=== PATIENT | male | born 1975 | race African-American/Black ===

== ENCOUNTER → 2016-06-06 | Outpatient (CLI) | payer BC ==
--- NOTE | 2016-06-07 16:13 | CR ---
EXAM DATE: 06/06/16 PATIENT'S AGE: 40 Patient: LICO STEVEN Facility: [place], [place] Site Site : 1975 Study: XRay Extremity Right HAND [id number] 3:19:34 PM Ordering Physician: JEAN PIERRE Final Report: HISTORY: Hand injury playing basketball. Findings/Impression: Two views of the left hand demonstrates normal bone mineralization. 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 There is degenerative changes are the radial ulnar joint space. No acute fracture is seen. Dictated by Ronda Melvin MD @ Jun 07 2016 1:54AM (Electronic Signature) Report Signed by Proxy. JAMES
== END ==
LOC: MW.CHFP 14:57
PROVIDERS: ATTEND Nurse Practitioner Family
DX: S69.91XA Unspecified injury of right wrist, hand and finger(s), initial encounter (principal); Q79.8 Other congenital malformations of musculoskeletal system
CPT/HCPCS: 73120-26-RT; 73120-RT

== ENCOUNTER → 2016-06-17 | Outpatient (CLI) | payer BC ==
--- NOTE | 2016-06-18 12:23 | MR ---
EXAM DATE: 06/17/16 PATIENT'S AGE: 41 Patient: LICO STEVEN Facility: [place], [place] : 1975 Study: MRI Extremity Right [id number] 5:32:10 PM Ordering Physician: Clemente Dozier Final Report: HISTORY: Right hand injury. Pain. Technique: Axial T1, axial PD fat-sat, coronal STIR, sagittal PD and sagittal PD fat-sat. The patient was not able to complete the entire examination secondary to pain. Comparison: Radiographs 06/06/2016. Findings: There is diffuse signal abnormality and indistinctness involving the fibers of the proper radial collateral ligament of the 3rd metacarpophalangeal joint as seen on the coronal STIR images compatible with tearing of that ligament. The accessory radial collateral ligament of that joint space appears at least partially intact. The ulnar collateral ligaments of the 3rd metacarpophalangeal joint are maintained. Marrow edema is noted involving the 3rd metacarpal head and base of the 3rd digit proximal phalanx likely reflecting reactive edema. There is a small to moderate 3rd metacarpophalangeal joint effusion. The volar plate of that articulation appears maintained. No discrete focal articular cartilage defect. The flexor digitorum profundus and superficialis tendons of the 3rd digit are maintained. The extensor tendon/apparatus of the 3rd digit is maintained. No acute fracture. Impression: 1. Examination mildly limited by patient inability to complete the entire examination secondary to pain. 2. Acute or subacute tearing of the proper radial collateral ligament of the 3rd metacarpophalangeal joint of the right hand. The accessory radial collateral ligament appears least partially intact. 3. Areas of periarticular marrow edema about the 3rd MCP joint are likely reactive from the adjacent ligament pathology. No fracture or definite focal cartilage defect. 4. A small to moderate 3rd metacarpophalangeal joint effusion is present. Dictated by Maxi Beebe MD @ Jun 18 2016 8:38AM (Electronic Signature) Report Signed by Proxy. JAMES
== END ==
LOC: MW.MRI 16:11
PROVIDERS: ATTEND Nurse Practitioner Family
DX: S69.91XA Unspecified injury of right wrist, hand and finger(s), initial encounter (principal); S63.652A Sprain of metacarpophalangeal joint of right middle finger, initial encounter; X58.XXXA Exposure to other specified factors, initial encounter
CPT/HCPCS: 73218-26-RT; 73218-RT

== ENCOUNTER 2016-10-16 00:13 | Emergency (ER) | payer BC ==
--- NOTE | 2016-10-16 00:55 | EDM.PDOC ---
ED HPI GENERAL MEDICAL PROBLEM - General Chief Complaint: General Stated Complaint: MALE PROBLEMS Time Seen by Provider: 10/16/16 00:52 - History of Present Illness INITIAL COMMENTS - FREE TEXT/NARRATIVE: HISTORY AND PHYSICAL: History of present illness: Patient's 41-year-old black male presents with a concern of STD screening he denies any penile lesions equivocates regarding discomfort with urination has had no discharge and denies history of prior episode Review of systems: As per history of present illness and below otherwise all systems reviewed and negative. Past medical history: As per history of present illness and as reviewed below otherwise noncontributory. Surgical history: As per history of present illness and as reviewed below otherwise noncontributory. Social history: No reported history of drug or alcohol abuse. Family history: As per history of present illness and as reviewed below otherwise noncontributory. Physical exam: HEENT: Atraumatic, normocephalic, pupils reactive, negative for conjunctival pallor or scleral icterus, mucous membranes moist, throat clear, neck supple, nontender, trachea midline. Lungs: Clear to auscultation, breath sounds equal bilaterally, chest nontender. Heart: S1S2, regular, negative for clicks, rubs, or JVD. Abdomen: Soft, nondistended, nontender. Negative for masses or hepatosplenomegaly. Negative for costovertebral tenderness. Pelvis: Stable nontender. Genitourinary: Deferred. Rectal: Deferred. Extremities: Atraumatic, negative for cords or calf pain. Neurovascular unremarkable. Neuro: Awake, alert, oriented. Cranial nerves II through XII unremarkable. Cerebellum unremarkable. Motor and sensory unremarkable throughout. Exam nonfocal. Diagnostics: UA GC and Chlamydia per urine Therapeutics: None Impression: #1 medical screening exam Definitive disposition and diagnosis as appropriate pending reevaluation and review of above. - Related Data Allergies Allergy/AdvReac Type Severity Reaction Status Date / Time No Known Allergies Allergy Verified 10/16/16 00:17 Home Meds: Home Meds . [No Known Home Meds] 06/17/15 [History] Past Medical History - Past Health History Medical/Surgical History: Denies Medical/Surgical History HEENT History: Reports: None Cardiovascular History: Reports: None Respiratory History: Reports: None Gastrointestinal History: Reports: None Genitourinary History: Reports: None Musculoskeletal History: Reports: None Neurological History: Reports: None Psychiatric History: Reports: None Endocrine/Metabolic History: Reports: None Hematologic History: Reports: None Dermatologic History: Reports: None - Infectious Disease History Infectious Disease History: Reports: None Social & Family History - Family History Family Medical History: Noncontributory - Tobacco Use Smoking Status *Q: Never Smoker Second Hand Smoke Exposure: No - Recreational Drug Use Recreational Drug Use: No ED ROS GENERAL - Review of Systems Review Of Systems: ROS reveals no pertinent complaints other than HPI. ED EXAM, GENERAL - Physical Exam Exam: See Below (See dictation) Course - Vital Signs Last Recorded V/S: Last Vital Signs Temp 36.1 C 10/16/16 00:17 Pulse 84 10/16/16 00:17 Resp 18 10/16/16 00:17 BP 148/86 H 10/16/16 00:17 Pulse Ox 97 10/16/16 00:17 - Orders/Labs/Meds Orders: Active Orders 24 hr Category Date Time Status CHLAMYDIA TRACHOMATIS/GC AMPLF Stat Lab 10/16/16 00:30 Received UA W/MICROSCOPIC [URIN] Stat Lab 10/16/16 00:30 Received Departure - Departure Time of Disposition: 00:54 Disposition: Home, Self-Care 01 Condition: Good Clinical Impression: Encounter for medical screening examination - Discharge Information Referrals: PCP,None [Primary Care Provider] - Additional Instructions: The following information is given to patients seen in the emergency department who are being discharged to home. This information is to outline your options for follow-up care. We provide all patients seen in our emergency department with a follow-up referral. The need for follow-up, as well as the timing and circumstances, are variable depending upon the specifics of your emergency department visit. If you don't have a primary care physician on staff, we will provide you with a referral. We always advise you to contact your personal physician following an emergency department visit to inform them of the circumstance of the visit and for follow-up with them and/or the need for any referrals to a consulting specialist. The emergency department will also refer you to a specialist when appropriate. This referral assures that you have the opportunity for followup care with a specialist. All of these measure are taken in an effort to provide you with optimal care, which includes your followup. Under all circumstances we always encourage you to contact your private physician who remains a resource for coordinating your care. When calling for followup care, please make the office aware that this follow-up is from your recent emergency room visit. If for any reason you are refused follow-up, please contact the [facility] emergency department at and asked to speak to the emergency department charge nurse. [facility] [address] [place] [id number] Follow-up primary medical doctor urology clinic as needed as discussed above call for appointment return as needed as discussed - My Orders Last 24 Hours: My Active Orders 10/16/16 00:30 CHLAMYDIA TRACHOMATIS/GC AMPLF Stat UA W/MICROSCOPIC [URIN] Stat - Assessment/Plan Last 24 Hours: My Active Orders 10/16/16 00:30 CHLAMYDIA TRACHOMATIS/GC AMPLF Stat UA W/MICROSCOPIC [URIN] Stat
[2016-10-16 01:17] VITALS: BP 134/81
== END 2016-10-16 01:17 | disposition home or self-care (01) ==
LOC: MW.ED 00:13
DX: Z11.3 Encounter for screening for infections with a predominantly sexual mode of transmission (principal)
CPT/HCPCS: 81001; 87491; 87591; 99282; 99283

== ENCOUNTER 2018-06-18 12:14 | Emergency (ER) | payer BC ==
--- NOTE | 2018-06-18 12:19 | EDM.PDOC ---
ED HPI GENERAL MEDICAL PROBLEM - General Chief Complaint: Lower Extremity Injury/Pain Stated Complaint: HURT LT FOOT Time Seen by Provider: 06/18/18 12:18 Source of Information: Reports: Patient History Limitations: Reports: No Limitations - History of Present Illness INITIAL COMMENTS - FREE TEXT/NARRATIVE: History of present illness: [] Review of systems: As per history of present illness and below otherwise all systems reviewed and negative. Past medical history: As per history of present illness and as reviewed below otherwise noncontributory. Surgical history: As per history of present illness and as reviewed below otherwise noncontributory. Social history: No reported history of drug or alcohol abuse. Family history: As per history of present illness and as reviewed below otherwise noncontributory. Physical exam: General: Well developed, well nourished in NAD HEENT: Atraumatic, normocephalic, pupils reactive, negative for conjunctival pallor or scleral icterus, mucous membranes moist, throat clear, neck supple, nontender, trachea midline. Lungs: Clear to auscultation, breath sounds equal bilaterally, chest nontender. Heart: S1S2, regular, negative for clicks, rubs, or JVD. Abdomen: NABS, Soft, nondistended, nontender. Negative for masses or hepatosplenomegaly. Negative for costovertebral tenderness. Pelvis: Stable nontender. Genitourinary: Deferred. Rectal: Deferred. Extremities: Atraumatic, negative for cords or calf pain. Neurovascular unremarkable. Neuro: Awake, alert, oriented. Cranial nerves II through XII unremarkable. Cerebellum unremarkable. Motor and sensory unremarkable throughout. Exam nonfocal. Skin:warm and dry Diagnostics: X-ray ankle and foot on the left Therapeutics: Toradol, ankle stirrup ED Course: Unremarkable Impression: Left foot/ankle sprain Prescriptions: None Plan: Ibuprofen, Tylenol, ice and elevation, follow up with primary care as needed Definitive disposition and diagnosis as appropriate pending reevaluation and review of above. Left Ankle Pain Score (Numeric/FACES): 7 - Related Data Allergies Allergy/AdvReac Type Severity Reaction Status Date / Time No Known Allergies Allergy Verified 06/18/18 12:30 Home Meds: Home Meds . [No Known Home Meds] 06/17/15 [History] Past Medical History - Past Health History Medical/Surgical History: Denies Medical/Surgical History HEENT History: Reports: None Cardiovascular History: Reports: None Respiratory History: Reports: None Gastrointestinal History: Reports: None Genitourinary History: Reports: None Musculoskeletal History: Reports: None Neurological History: Reports: None Psychiatric History: Reports: None Endocrine/Metabolic History: Reports: None Hematologic History: Reports: None Dermatologic History: Reports: None - Infectious Disease History Infectious Disease History: Reports: None Social & Family History - Family History Family Medical History: Noncontributory Review of Systems - Review of Systems Review Of Systems: ROS reveals no pertinent complaints other than HPI. ED EXAM, GENERAL - Physical Exam Exam: See Below (See history of present illness) Course - Vital Signs Last Recorded V/S: Last Vital Signs Temp 97.4 F 06/18/18 12:27 Pulse 77 06/18/18 12:27 Resp 18 06/18/18 12:27 BP 116/70 06/18/18 12:27 Pulse Ox 95 06/18/18 12:27 - Orders/Labs/Meds Meds: Medications Discontinued Medications Generic Name Dose Route Start Last Admin Trade Name Kelley PRN Reason Stop Dose Admin Ketorolac Tromethamine 60 mg 06/18/18 12:39 06/18/18 12:54 Toradol IM 06/18/18 12:40 60 mg ONETIME ONE Administration Departure - Departure Time of Disposition: 13:23 Disposition: Home, Self-Care 01 Condition: Good Clinical Impression: Strain of left ankle and foot Qualifiers: Encounter type: initial encounter Qualified Code(s): S96.912A - Strain of unspecified muscle and tendon at ankle and foot level, left foot, initial encounter - Discharge Information *PRESCRIPTION DRUG MONITORING PROGRAM REVIEWED*: No *COPY OF PRESCRIPTION DRUG MONITORING REPORT IN PATIENT REINA: No Referrals: PCP,None [Primary Care Provider] - Forms: ED Department Discharge Additional Instructions: The following information is given to patients seen in the emergency department who are being discharged to home. This information is to outline your options for follow-up care. We provide all patients seen in our emergency department with a follow-up referral. The need for follow-up, as well as the timing and circumstances, are variable depending upon the specifics of your emergency department visit. If you don't have a primary care physician on staff, we will provide you with a referral. We always advise you to contact your personal physician following an emergency department visit to inform them of the circumstance of the visit and for follow-up with them and/or the need for any referrals to a consulting specialist. The emergency department will also refer you to a specialist when appropriate. This referral assures that you have the opportunity for follow-up care with a specialist. All of these measure are taken in an effort to provide you with optimal care, which includes your follow-up. Under all circumstances we always encourage you to contact your private physician who remains a resource for coordinating your care. When calling for follow-up care, please make the office aware that this follow-up is from your recent emergency room visit. If for any reason you are refused follow-up, please contact the [facility] Emergency Department at and asked to speak to the emergency department charge nurse. [facility] Primary Care [address] [place] [id number]
[2018-06-18] MEDS ORDERED: Ketorolac 60 MG/2 ML SDV IM ONE (12:39)
--- NOTE | 2018-06-18 13:19 | CR ---
EXAMINATION: Left foot and left ankle HISTORY: Pain COMPARISON: None TECHNIQUE: 3 views of the left ankle and 2 views of the left foot FINDINGS: There is no acute osseous abnormality, dislocation, or fracture. Bone mineralization and joint spaces appear preserved. Mild generalized soft tissue swelling. Ankle mortise and talar dome appear intact. Tiny plantar calcaneal spur. IMPRESSION: No acute osseous abnormality identified.
[2018-06-18 13:43] VITALS: BP 120/53
== END 2018-06-18 13:35 | disposition home or self-care (01) ==
LOC: MW.ED 12:14
DX: S93.402A Sprain of unspecified ligament of left ankle, initial encounter (principal); S96.912A Strain of unspecified muscle and tendon at ankle and foot level, left foot, initial encounter; X50.9XXA Other and unspecified overexertion or strenuous movements or postures, initial encounter; Y93.66 Activity, soccer
CPT/HCPCS: 73610; 73620; 96372; 99283; J1885

== ENCOUNTER 2019-12-27 06:36 | Day surgery (SDC) | payer BC ==
[~2019-12-27 06:36] MED LIST: Lactated Ringers 1,000 ML IV SCH; ceFAZolin 2 GM in Premix Bag 1 BAG IV ONE
[2019-12-27] MEDS ORDERED: Midazolam 1 MG/ML 2 ML SDV ONE (07:10)
[2019-12-27] MEDS ORDERED: fentaNYL 100 MCG/2 ML SDV ONE (07:10)
[2019-12-27] MEDS ORDERED: Propofol 200 MG/20 ML SDV ONE ×2 (07:10→10:38)
[2019-12-27] MEDS ORDERED: Succinylcholine/Sod PF 100 MG/5 ML SYRINGE IV ONE (07:11)
[2019-12-27] MEDS ORDERED: Rocuronium Bromide 50 MG/5 ML Syringe ONE (07:11)
[2019-12-27] MEDS ORDERED: ceFAZolin 1 GM Vial ONE (07:19)
[2019-12-27] MEDS ORDERED: Bupivacaine 0.5% 10 ML SDV ONE (07:19)
--- NOTE | 2019-12-27 07:26 | PCM.PREANE ---
Preanesthetic Assessment - Anesthesia/Transfusion/Family Hx Anesthesia History: Prior Anesthesia Without Reaction Family History of Anesthesia Reaction: No Transfusion History: No Prior Transfusion(s) Intubation History: Unknown - Review of Systems General: No Symptoms Pulmonary: No Symptoms Cardiovascular: No Symptoms Gastrointestinal: No Symptoms Neurological: No Symptoms Other: Reports: None - Physical Assessment Vital Signs: Last Vital Signs Temp 36.9 C 12/27/19 07:18 Pulse 67 12/27/19 07:18 Resp 18 12/27/19 07:18 BP 130/77 12/27/19 07:18 Pulse Ox 97 12/27/19 07:18 Height: 6 ft 7 in Weight: 122.47 kg ASA Class: 2 Mental Status: Alert & Oriented x3 Airway Class: Mallampati = 2 Dentition: Reports: Normal Dentition, [place](s) (gold crowns x2 upper front) Thyro-Mental Finger Breadths: 3 Mouth Opening Finger Breadths: 3 ROM/Head Extension: Full Lungs: Clear to Auscultation, Normal Respiratory Effort Cardiovascular: Regular Rate, Regular Rhythm - Allergies Allergies/Adverse Reactions: Allergies Allergy/AdvReac Type Severity Reaction Status Date / Time No Known Allergies Allergy Verified 12/21/19 12:52 - Blood Blood Available: No - Anesthesia Plan Pre-Op Medication Ordered: None - Acknowledgements Anesthesia Type Planned: General Anesthesia Pt an Appropriate Candidate for the Planned Anesthesia: Yes Alternatives and Risks of Anesthesia Discussed w Pt/Guardian: Yes Pt/Guardian Understands and Agrees with Anesthesia Plan: Yes PreAnesthesia Questionnaire - Past Health History Medical/Surgical History: Denies Medical/Surgical History HEENT History: Reports: Other (See Below) Other HEENT History: wears glasses Cardiovascular History: Reports: None Respiratory History: Reports: None Gastrointestinal History: Reports: None Genitourinary History: Reports: None Musculoskeletal History: Reports: None Neurological History: Reports: None Psychiatric History: Reports: None Endocrine/Metabolic History: Reports: Obesity/BMI 30+ Hematologic History: Reports: None Immunologic History: Reports: None Oncologic (Cancer) History: Reports: None Dermatologic History: Reports: None - Infectious Disease History Infectious Disease History: Reports: None - Past Surgical History Head Surgeries/Procedures: Reports: None HEENT Surgical History: Reports: None Cardiovascular Surgical History: Reports: None Respiratory Surgical History: Reports: None GI Surgical History: Reports: None Male Surgical History: Reports: None Endocrine Surgical History: Reports: None Neurological Surgical History: Reports: None Musculoskeletal Surgical History: Reports: Arthroscopic Knee Other Musculoskeletal Surgeries/Procedures:: left knee ACL and MCL repairs Oncologic Surgical History: Reports: None Dermatological Surgical History: Reports: None - SUBSTANCE USE Tobacco Use Status *Q: Former Tobacco User Tobacco Use Within Last Twelve Months: No Recreational Drug Use History: No - HOME MEDS Home Medications: Home Meds . [No Known Home Meds] 06/17/15 [History] - CURRENT (IN HOUSE) MEDS Current Meds: Current Medications Lactated Ringer's (Ringers, Lactated) 1,000 mls @ 125 mls/hr IV ASDIRECTED TRISTA Discontinued Medications Bupivacaine HCl (Sensorcaine-Mpf 0.5%) Confirm Administered Dose 20 ml .ROUTE .STK-MED ONE Stop: 12/27/19 07:20 Cefazolin Sodium (Ancef) Confirm Administered Dose 1 gm .ROUTE .STK-MED ONE Stop: 12/27/19 07:20 Fentanyl (Sublimaze) Confirm Administered Dose 100 mcg .ROUTE .STK-MED ONE Stop: 12/27/19 07:11 Cefazolin Sodium/Dextrose 2 gm (/ Premix) 50 mls @ 100 mls/hr IV ONETIME ONE Stop: 12/27/19 06:59 Lidocaine HCl (Xylocaine-Mpf 1%) Confirm Administered Dose 5 ml .ROUTE .STK-MED ONE Stop: 12/27/19 07:12 Midazolam HCl (Versed 1 Mg/Ml) Confirm Administered Dose 2 mg .ROUTE .STK-MED ONE Stop: 12/27/19 07:11 Propofol (Diprivan 20 Ml) Confirm Administered Dose 200 mg .ROUTE .STK-MED ONE Stop: 12/27/19 07:11 Rocuronium [place] (Rocuronium [place]) Confirm Administered Dose 50 mg .ROUTE .STK-MED ONE Stop: 12/27/19 07:12
[2019-12-27] MEDS ORDERED: ceFAZolin/Dextrose,Iso-Osmotic 2 GM/50 ML Duplex Bag IV ONE (07:57)
[2019-12-27] MEDS ORDERED: Dexamethasone 4 MG/ML 5 ML MDV ONE (08:10)
[2019-12-27] MEDS ORDERED: Ondansetron 4 MG/2 ML SDV ONE (08:10)
[2019-12-27] MEDS ORDERED: Ketorolac 30 MG/ML SDV ONE (08:10)
[2019-12-27] MEDS ORDERED: Albuterol 0.083% 2.5 MG/3 ML Neb Soln NEB PRN (08:42)
[2019-12-27] MEDS ORDERED: 50% Dextrose in Water 50 ML Syringe IVPUSH PRN (08:42)
[2019-12-27] MEDS ORDERED: fentaNYL 100 MCG/2 ML SDV IVPUSH PRN (08:42)
[2019-12-27] MEDS ORDERED: EPINEPHrine 1:10,000 1 MG/10 ML Syringe IVPUSH PRN (08:42)
[2019-12-27] MEDS ORDERED: Naloxone 0.4 MG/ML Syringe IVPUSH PRN (08:42)
[2019-12-27] MEDS ORDERED: Atropine 0.1 MG/ML 10 ML Syringe IVPUSH PRN ×2 (08:42)
[2019-12-27] MEDS ORDERED: HYDROmorphone 2 MG/ML Syringe IVPUSH PRN (08:42)
[2019-12-27] MEDS ORDERED: Ondansetron 4 MG/2 ML SDV IVPUSH PRN ×2 (08:42→09:42)
[2019-12-27] MEDS ORDERED: ePHEDrine 50 MG/ML SDV ONE (08:49)
[2019-12-27] MEDS ORDERED: Acetaminophen/HYDROcodone 325-5 MG Tab PO PRN (09:42)
[2019-12-27] MEDS ORDERED: Morphine 10 MG/ML Syringe IVPUSH PRN (09:42)
[2019-12-27] MEDS ORDERED: Lactated Ringers 1,000 ML IV SCH (09:45)
--- NOTE | 2019-12-27 09:45 | PCM.OPNOTE ---
- General Post-Op/Procedure Note Date of Surgery/Procedure: 12/27/19 Operative Procedure(s): Repair incarcerated umbilical hernia with Dulex mesh Pre Op Diagnosis: Incarcerated umbilical hernia Post-Op Diagnosis: Same Anesthesia Technique: General ET Tube (ASA II) Primary Surgeon: Markos [facility] Occupational Therapist: Marguerite Melendez Fluid Replacement, Intraop: 1,000 EBL in mLs: 10 Condition: Good Free Text/Narrative:: DICTATION [id number] CPT CODE 91603/51787
--- NOTE | 2019-12-27 10:21 | PCM.POSTAN ---
POST ANESTHESIA ASSESSMENT - MENTAL STATUS Mental Status: Alert, Oriented - VITAL SIGNS Vital Signs: Last Vital Signs Temp 36.6 C 12/27/19 09:35 Pulse 53 L 12/27/19 10:05 Resp 13 12/27/19 10:05 BP 128/64 12/27/19 10:05 Pulse Ox 97 12/27/19 10:05 - RESPIRATORY Respiratory Status: Respiratory Rate WNL, Airway Patent, O2 Saturation Stable - CARDIOVASCULAR CV Status: Pulse Rate WNL, Blood Pressure Stable - GASTROINTESTINAL GI Status: No Symptoms - PAIN Pain Score: 3 - POST OP HYDRATION Hydration Status: Adequate & Stable - OBSERVATIONS Free Text/Narrative:: No anesthesia problems
[2019-12-27] MEDS ORDERED: Atropine 1 MG/ML SDV ONE (10:38)
[2019-12-27] MEDS ORDERED: Glycopyrrolate 0.2 MG/ML SDV ONE (10:38)
[2019-12-27] MEDS ORDERED: oxyCODONE 5 MG Tab ONE (11:06)
[2019-12-27] MEDS ORDERED: oxyCODONE 5 MG Tab PO ONE (11:12)
--- NOTE | 2019-12-27 11:44 | PCM48HPAN ---
Post Anesthesia Note - EVALUATION WITHIN 48HRS OF ANESTHETIC Vital Signs in Normal Range: Yes Patient Participated in Evaluation: Yes Respiratory Function Stable: Yes Airway Patent: Yes Cardiovascular Function Stable: Yes Hydration Status Stable: Yes Pain Control Satisfactory: Yes Nausea and Vomiting Control Satisfactory: Yes Mental Status Recovered: Yes Vital Signs: Last Vital Signs Temp 36.2 C 12/27/19 10:15 Pulse 53 L 12/27/19 10:15 Resp 16 12/27/19 10:15 BP 126/64 12/27/19 10:15 Pulse Ox 96 12/27/19 10:15 - COMMENTS/OBSERVATIONS Free Text/Narrative:: No anesthesia problems
--- NOTE | 2019-12-27 12:14 | OR ---
SURGEON: Markos Lovell M.D. DATE OF PROCEDURE: 12/27/2019 OPERATION PERFORMED: Repair of incarcerated umbilical hernia with Dulex mesh. PRIMARY SURGEON: Markos Lovell MD CUSTOMER SERVICE ENGINEER: Acquisitions Analyst: FLAVIA Stout student. ANESTHESIA: General endotracheal. ASA CLASSIFICATION: II. PREOPERATIVE DIAGNOSIS: Incarcerated umbilical hernia. POSTOPERATIVE DIAGNOSIS: Incarcerated umbilical hernia. ESTIMATED BLOOD LOSS: 10 mL. INTRAOPERATIVE FLUID REPLACEMENT: 1000 mL of crystalloid. DESCRIPTION OF PROCEDURE: The patient was taken to the operating room and placed on the operating table in the supine position. Time-out was called for appropriate identification of the patient and procedure. The surgical site had been marked prior to the patient entering the operating room. Sequential compression boots were placed on the patient. Following satisfactory attainment of general endotracheal anesthesia, the abdomen was prepped with DuraPrep solution and sterile drapes were applied. The skin around the umbilicus was infiltrated with 10 mL of 0.5% Marcaine solution. Infraumbilical skin incision was made and deepened through the subcutaneous tissue obtaining hemostasis with the use of electrocautery. The hernia sac was dissected free and the hernia was entered. The fascial edges were well defined and the defect was at least 3 cm in greatest dimension. Once that was accomplished, attempt was made to place Ventralex mesh. However, this would not lie flat in there and so a Dulex mesh was brought to the operating table. This was soaked in 1% Ancef solution and placed in an underlay technique and secured with multiple interrupted horizontal mattress 0 Ethibond sutures. Each suture was placed at least 1 cm away from the fascial edges. All sutures were placed under direct vision and held with hemostats until the final suture had been placed. Once all sutures were tied, the patient was given a Valsalva maneuver to 40 cm of water. The repair was solid. The wound was inspected for hemostasis and no other bleeding was noted. The fascia was then reapproximated over the mesh with interrupted 0 Ethibond sutures. The umbilicus was tacked down with a 3-0 pursestring suture of Vicryl. Once that was accomplished, subcutaneous tissue was closed with running 3-0 Vicryl and the skin edges reapproximated with subcuticular 4-0 Monocryl. The incision was then Steri- Stripped and dressed with a sterile Tegaderm pad. Sponge, needle, and instrument counts were all correct. The patient tolerated the procedure well. Following emergence from anesthesia and extubation, he was taken to recovery room in stable condition. RAHEEL DAVALOS /[id number]
[2019-12-27 12:49] VITALS: BP 126/67; PULSE 59
== END 2019-12-27 11:50 | disposition home or self-care (01) ==
LOC: MW.SDS 06:36
PROVIDERS: ATTEND Surgery
DX: K42.0 Umbilical hernia with obstruction, without gangrene (principal); G47.00 Insomnia, unspecified; E66.9 Obesity, unspecified; Z98.890 Other specified postprocedural states; Z87.891 Personal history of nicotine dependence; Z68.31 Body mass index [BMI] 31.0-31.9, adult
CPT/HCPCS: 49587; 88302; A9270; C1781; J0131; J0330; J0461; J0690; J1100; J1885; J2001; J2250; J2704; J3010; J3490; J7120; 00750; J2405